=== PATIENT | female | born 1935 | race Caucasian/White ===

== ENCOUNTER → 2019-08-19 | Outpatient (CLI) | payer MEDICARE, BC ==
[~2019-08-19] MED LIST: ACET-458 PO; ACET650T8 PEG; ASPI-496 PO; CHOL10003 PO; DIPH25CA64 PO; ESOM20CA PO; IPRA12.9 NS; IPRA15SP NS; LATA2.5D3 EACHEYE; LISI-167 PO; NAPR220C2 PO; POLY17PO5 PO; SENN1TAB67 PO; VIT1TABL32 PO
[2019-08-19 12:29] LABS: ALANINE AMINOTRANSFERASE 17 U/L (12-78); ALBUMIN 4.1 g/dL (3.4-5.0); ANION GAP 4 mmol/L (5-15); CALCIUM 8.7 mg/dL (8.5-10.1); CHLORIDE 110 mmol/L (98-107); CREATININE 1.12 mg/dL (0.55-1.02)
[2019-08-19 12:32] LABS: ALKALINE PHOSPHATASE 70 U/L (45-117); BILIRUBIN,TOTAL 0.4 mg/dL (0.2-1.0); TOTAL PROTEIN 7.5 g/dL (6.4-8.2)
== END | disposition home or self-care (01) ==
LOC: STAR 10:56
PROVIDERS: ATTEND Obstetrics & Gynecology Female Pelvic Medicine and Reconstructive Surgery
DX: Z01.818 Encounter for other preprocedural examination (principal); R10.2 Pelvic and perineal pain; N39.3 Stress incontinence (female) (male); N81.10 Cystocele, unspecified; N81.6 Rectocele
CPT/HCPCS: 36415; 80053; 93005

== ENCOUNTER 2019-08-26 10:05 | Day surgery (SDC) | payer MEDICARE, BC ==
[~2019-08-26] VITALS: Ht 157.5 cm; Wt 65.3 kg
[2019-08-26 10:31] VITALS: BP 163/77
[2019-08-26] MEDS ORDERED: LACTATED RINGERS 1,000 ML IV SCH (10:33)
[2019-08-26] MEDS ORDERED: CHLORHEXIDINE 15 ML UDC MM STA (10:33)
[2019-08-26] MEDS ORDERED: CHLORHEXIDINE 15 ML UDC ONE (10:37)
[2019-08-26] MEDS ORDERED: VANCOMYCIN 1,000 MG ONE (11:32)
[2019-08-26] MEDS ORDERED: BUPIVACAINE/PF-EPI 0.25% 1:200K ONE ×2 (11:32→13:18)
[2019-08-26] MEDS ORDERED: GENTAMICIN 80 MG/2 ML ONE (11:32)
[2019-08-26] MEDS ORDERED: FENTANYL PF 100 MCG/2ML ONE ×2 (11:43→12:36)
[2019-08-26] MEDS ORDERED: ONDANSETRON 2MG/ML, 2ML ONE (12:44)
[2019-08-26] MEDS ORDERED: PROPOFOL 10 MG/ML, 20ML ONE (12:44)
[2019-08-26] MEDS ORDERED: CEFAZOLIN 1,000 MG ONE ×2 (12:44)
[2019-08-26] MEDS ORDERED: DEXAMETHASONE 4 MG/ML, 1ML ONE (12:44)
[2019-08-26] MEDS ORDERED: LABETALOL 5MG/ML, 20ML IV PRN (13:00)
[2019-08-26] MEDS ORDERED: PROMETHAZINE 25 MG/ML, 1ML IVPush PRN (13:00)
[2019-08-26] MEDS ORDERED: ONDANSETRON 2MG/ML, 2ML IVPush PRN (13:00)
[2019-08-26] MEDS ORDERED: OXYcodone 5 MG/5 ML ORAL.SOL UDC PO PRN (13:00)
[2019-08-26] MEDS ORDERED: HYDROmorphone 1 MG/ML, 1ML INJ IVPush PRN (13:00)
[2019-08-26] MEDS ORDERED: FENTANYL PF 100 MCG/2ML IV PRN (13:00)
[2019-08-26] MEDS ORDERED: ACETAMINOPHEN 325 MG TABLET PO PRN (13:00)
[2019-08-26] MEDS ORDERED: hydrALAzine 20 MG/ML, 1ML IV PRN (13:00)
[2019-08-26] MEDS ORDERED: PROMETHAZINE 25 MG SUPP PR PRN (13:00)
[2019-08-26] MEDS ORDERED: HYDROcodone/APAP 5/325 TABLET ONE (14:54)
== END 2019-08-26 15:40 | disposition home or self-care (01) ==
LOC: EDSEX → OUT 10:05
PROVIDERS: ATTEND Obstetrics & Gynecology Female Pelvic Medicine and Reconstructive Surgery
DX: N81.89 Other female genital prolapse (principal); Z11.59 Encounter for screening for other viral diseases; N39.46 Mixed incontinence; N81.11 Cystocele, midline; N81.5 Vaginal enterocele; N81.6 Rectocele; R10.2 Pelvic and perineal pain; I10 Essential (primary) hypertension; N32.81 Overactive bladder; E55.9 Vitamin D deficiency, unspecified; Z79.82 Long term (current) use of aspirin; Z79.899 Other long term (current) drug therapy; Z88.0 Allergy status to penicillin; Z88.5 Allergy status to narcotic agent; Z91.041 Radiographic dye allergy status; Z90.49 Acquired absence of other specified parts of digestive tract; Z90.710 Acquired absence of both cervix and uterus; Z98.890 Other specified postprocedural states
CPT/HCPCS: 36415; 57265; 57282; 57288; 87635; C1771; J0690; J1100; J1580; J2405; J2704; J3010; J3370; J7120

== ENCOUNTER 2020-06-26 13:33 | Outpatient (CLI) | payer MEDICARE, BC ==
[2020-06-26 09:35] LABS: CREATININE 1.24 mg/dL (0.55-1.02)
[~2020-06-26 13:33] MED LIST changes: +ACET-814 PEG; -ACET650T8 PEG; -LATA2.5D3 EACHEYE; +LATA2.5D4 EACHEYE; +OMNIPAQUE 350 MG/ML, 100ML BOTTLE ONE; +OMNIPAQUE 350 MG/ML, 150 ML BOTTLE ONE
== END 2020-06-26 23:59 | disposition home or self-care (01) ==
LOC: RAD 13:33
PROVIDERS: ATTEND Obstetrics & Gynecology Female Pelvic Medicine and Reconstructive Surgery
DX: R10.9 Unspecified abdominal pain (principal)
CPT/HCPCS: 36415; 74178; 82565; Q9967

== ENCOUNTER → 2020-07-09 | Outpatient (CLI) | payer MEDICARE, BC ==
[~2020-07-09] MED LIST changes: -OMNIPAQUE 350 MG/ML, 100ML BOTTLE ONE; -OMNIPAQUE 350 MG/ML, 150 ML BOTTLE ONE
[2020-07-09 12:30] LABS: ALANINE AMINOTRANSFERASE 19 U/L (12-78); ALBUMIN 4.2 g/dL (3.4-5.0); ANION GAP 3 mmol/L (5-15); CALCIUM 8.9 mg/dL (8.5-10.1); CHLORIDE 114 mmol/L (98-107)
[2020-07-09 12:32] LABS: ALKALINE PHOSPHATASE 74 U/L (45-117); BILIRUBIN,TOTAL 0.3 mg/dL (0.2-1.0); TOTAL PROTEIN 7.3 g/dL (6.4-8.2)
== END | disposition home or self-care (01) ==
LOC: STAR 11:06
PROVIDERS: ATTEND Obstetrics & Gynecology Female Pelvic Medicine and Reconstructive Surgery
DX: Z01.812 Encounter for preprocedural laboratory examination (principal); Z20.822 Contact with and (suspected) exposure to COVID-19; R10.2 Pelvic and perineal pain; N39.3 Stress incontinence (female) (male); N81.10 Cystocele, unspecified; N81.6 Rectocele; R94.31 Abnormal electrocardiogram [ECG] [EKG]
CPT/HCPCS: 36415; 80053; 93005; U0003; U0005

== ENCOUNTER 2020-07-13 06:31 | Day surgery (SDC) | payer MEDICARE, BC ==
[~2020-07-13] VITALS: Ht 152.4 cm; Wt 66.4 kg
[2020-07-13] MEDS ORDERED: NEOMY/POLYMYXIN B GU IRR. 1 ML ONE (06:46)
[2020-07-13] MEDS ORDERED: EPINEPHRINE 1 MG/ML, 1ML ONE (06:46)
[2020-07-13] MEDS ORDERED: BUPIVACAINE/PF 0.25% ONE (06:46)
[2020-07-13 07:23] VITALS: BP 154/71
[2020-07-13] MEDS ORDERED: LIDOCAINE-MPF 1%, 2ML ONE (07:29)
[2020-07-13] MEDS ORDERED: CHLORHEXIDINE 15 ML UDC ONE (07:29)
[2020-07-13] MEDS ORDERED: LACTATED RINGERS 1,000 ML IV SCH (07:30)
[2020-07-13] MEDS ORDERED: CHLORHEXIDINE 15 ML UDC PO ONE (07:30)
[2020-07-13] MEDS ORDERED: LIDOCAINE-MPF 1%, 2ML INFIL ONE (07:30)
[2020-07-13] MEDS ORDERED: FENTANYL PF 100 MCG/2ML ONE (07:47)
[2020-07-13] MEDS ORDERED: MIDAZOLAM 1 MG/ML, 2ML ONE (07:47)
[2020-07-13] MEDS ORDERED: PROPOFOL 10 MG/ML, 20ML ONE (07:49)
[2020-07-13] MEDS ORDERED: CEFAZOLIN 1,000 MG ONE ×3 (07:50→11:54)
[2020-07-13] MEDS ORDERED: ONDANSETRON 2MG/ML, 2ML ONE (07:50)
[2020-07-13] MEDS ORDERED: ACETAMINOPHEN 325 MG TABLET PO PRN (08:00)
[2020-07-13] MEDS ORDERED: FENTANYL PF 100 MCG/2ML IV PRN (08:00)
[2020-07-13] MEDS ORDERED: HYDROmorphone 1 MG/ML, 1ML INJ IVPush PRN (08:00)
[2020-07-13] MEDS ORDERED: ONDANSETRON 2MG/ML, 2ML IVPush PRN (08:00)
[2020-07-13] MEDS ORDERED: OXYcodone 5 MG/5 ML ORAL.SOL UDC PO PRN (08:00)
[2020-07-13] MEDS ORDERED: KETOROLAC 30 MG/1 ML ONE (11:54)
== END 2020-07-13 11:25 | disposition home or self-care (01) ==
LOC: OUT 06:31
PROVIDERS: ATTEND Obstetrics & Gynecology Female Pelvic Medicine and Reconstructive Surgery
DX: N81.89 Other female genital prolapse (principal); N39.46 Mixed incontinence; N81.11 Cystocele, midline; N81.6 Rectocele; N81.5 Vaginal enterocele; I10 Essential (primary) hypertension; E78.5 Hyperlipidemia, unspecified; E55.9 Vitamin D deficiency, unspecified; Z79.82 Long term (current) use of aspirin; Z79.899 Other long term (current) drug therapy; Z87.442 Personal history of urinary calculi; Z88.0 Allergy status to penicillin; Z88.5 Allergy status to narcotic agent; Z91.041 Radiographic dye allergy status; Z90.710 Acquired absence of both cervix and uterus; Z90.49 Acquired absence of other specified parts of digestive tract; Z98.890 Other specified postprocedural states
CPT/HCPCS: 57265; 57282; 57288; C1771; J0171; J0690; J1885; J2250; J2405; J2704; J3010; J7120